=== PATIENT | female | born 1985 | race Caucasian/White ===

== ENCOUNTER 2019-04-19 17:40 | Emergency (ER) | payer OTHER ==
[~2019-04-19] VITALS: Ht 157.5 cm; Wt 64.4 kg
== END 2019-04-19 20:14 | disposition home or self-care (01) ==
LOC: ER 17:40
DX: K52.89 Other specified noninfective gastroenteritis and colitis (principal); R10.84 Generalized abdominal pain

== ENCOUNTER 2020-09-24 22:04 | Emergency (ER) | payer OTHER ==
[~2020-09-24] VITALS: Ht 157.5 cm; Wt 68.0 kg
== END 2020-09-25 05:27 | disposition home or self-care (01) ==
LOC: ER 22:04
DX: S92.412A Displaced fracture of proximal phalanx of left great toe, initial encounter for closed fracture (principal); W22.8XXA Striking against or struck by other objects, initial encounter; Y93.89 Activity, other specified; Y92.89 Other specified places as the place of occurrence of the external cause; Y99.8 Other external cause status

== ENCOUNTER 2021-10-30 15:44 | Emergency (ER) | payer OTHER ==
[~2021-10-30] VITALS: Ht 157.5 cm; Wt 63.0 kg
[2021-10-30] MEDS ORDERED: OSEL75CA PO (20:04)
== END 2021-10-30 20:11 | disposition home or self-care (01) ==
LOC: ER 15:44
DX: J10.1 Influenza due to other identified influenza virus with other respiratory manifestations (principal); Z20.822 Contact with and (suspected) exposure to COVID-19